=== PATIENT | female | born 1985 | race African-American/Black ===

== ENCOUNTER → 2018-08-07 | Emergency (ER) | payer OTHER, MEDICAID ==
[~2018-08-07] VITALS: Ht 167.6 cm; Wt 95.5 kg
[~2018-08-07] MED LIST: ANTIBIOTICS FOR UTI; BACTRIM 400 MG-1 TAB PO; CEPHALEXIN500 M1 PO; CLEOCIN HCL300 MG PO; FERROUS SU325 MG/TAB PO; MOTRIN 800800 MG/TAB PO; NO HOME MEDICATIONS; PEPCID 20MG TAB20 MG PO; PERCOCET 5/321 UDTAB PO; PHENERGAN 25 TA25 MG PO; PRENATAL VITAMI1 TA5 PO; PROGESTERONE; REGLAN 10MG10 MG/TAB PO; TRIAMCINOLONE A15 GM TP; ULTRAM50 MG PO; ZITHROMAX Z PA250 MG PO; prenatal
[2018-08-07 14:57] LABS: BASO % 0.2 % (0.0-2.0); GRAN # 5.7 (1.4-6.5); GRAN % 67.4 % (42.2-75.2); HEMOGLOBIN 12.1 g/dl (12.5-16.0); LYMPH # 1.5 (1.2-3.4); MEAN CELL VOLUME 72 fl (80.0-100.0); MEAN CORPUSCULAR HEMOGLOBIN 24 pg (27.0-31.0); MEAN CORPUSCULAR HGB CONC 33 g/dl (33.0-37.0); MEAN PLATELET VOLUME 9.6 fl (7.4-10.4); MONO # 1.2 (0.1-0.6); MONO % 13.8 % (1.7-9.3); PLATELET COUNT 260 K/mm3 (130-400); RED BLOOD COUNT 5.07 M/mm3 (4.10-5.30); REDCELL DISTRIBUTION WIDTH-CV 15.9 % (11.5-14.5)
[2018-08-07 14:58] LABS: HEMATOCRIT 36.5 % (37.0-47.0)
[2018-08-07 15:24] LABS: ALBUMIN 4.3 gm/dL (3.5-5.0); CALCIUM 9.2 mg/dL (8.4-10.2); CREATININE, serum 0.86 mg/dL (0.52-1.25); TOTAL PROTEIN 8.6 gm/dL (6.4-8.2)
[2018-08-07 15:38] LABS: C-REACTIVE PROTEIN 15.9 mg/dL (0.0-0.9)
[2018-08-07 16:26] VITALS: TEMP 101.5
[2018-08-07 16:43] VITALS: BP 141/99; PULSE 113
== END ==
LOC: COL.ER 13:46
PROVIDERS: Physician Assistant
DX: J03.90 Acute tonsillitis, unspecified (principal); I10 Essential (primary) hypertension; E11.9 Type 2 diabetes mellitus without complications
CPT/HCPCS: J1100; J7030